=== PATIENT | female | born 2000 | race Caucasian/White ===

== ENCOUNTER 2018-09-23 12:45 | Emergency (ER) | payer OTHER ==
[2018-09-23 13:10] VITALS: BP 144/76
[2018-09-23] MEDS ORDERED: TDAP ADULT 0.5 ML INJ (BOOSTRIX) IM ONE (13:39)
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
== END 2018-09-23 13:50 | disposition home or self-care (01) ==
DX: S61.401A Unspecified open wound of right hand, initial encounter (principal); Z23 Encounter for immunization; W19.XXXA Unspecified fall, initial encounter

== ENCOUNTER 2018-10-08 03:28 | Emergency (ER) | payer OTHER ==
[2018-10-08] MEDS ORDERED: ONDANSETRON 4 MG/2 ML VIAL ONE (03:38)
[2018-10-08] MEDS ORDERED: ONDANSETRON 4 MG/2 ML VIAL IVP ONE (03:53)
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
[2018-10-08 07:25] VITALS: BP 90/49
== END 2018-10-08 08:29 | disposition home or self-care (01) ==
LOC: EDUNIT#
DX: F10.920 Alcohol use, unspecified with intoxication, uncomplicated (principal)
CPT/HCPCS: 96374; J2405